=== PATIENT | female | born 1965 | race Caucasian/White ===

== ENCOUNTER → 2024-01-10 12:55 | Outpatient (REF) | payer OTHER, SELFPAY | LOC: HWRCS 12:55 | PROVIDERS: ATTENDING PHYSICIAN Internal Medicine Cardiovascular Disease; FAMILY PHYSICIAN Family Medicine | DX: R00.2 Palpitations (principal) | CPT/HCPCS: 93306 ==

== ENCOUNTER 2025-05-29 07:48 | Emergency (ER) | payer OTHER, SELFPAY ==
[2025-05-29] VITALS (8 sets, daily range): BP systolic 89–118; BP diastolic 51–80
[2025-05-29] MEDS: NSS 1000 IV (08:00)
--- NOTE | 2025-05-29 08:11 | ED.GENMED ---
History of Present Illness
General
Chief Complaint: Abdominal Symptoms
Time Seen by Provider: 05/29/25 07:54
History of Present Illness
History of Present Illness:
58 female with history of stage IV CKD, DVT currently on Coumadin, anxiety, bipolar disorder, hypertension, hyperlipidemia, presents to the emergency department for evaluation of diarrhea/weakness and blood tinged stool since this AM. Has a
reported history of C. difficile in October of this year. Primarily receives her medical care through [facility] as well as [facility]. She reports generalized abdominal bloating but denies any other abdominal pain. No
fevers or chills. No recent antibiotics in the past 3 months
Past History
Past History
ED Past Medical History: Other (Bipolar, hypertension, previous PE, hypothyroidism, sleep apnea, chronic kidney disease, sciatica, herniated lumbar disc, gastric bypass, hysterectomy, incisional hernia repair)
Social History
Tobacco: Former smoker
Alcohol: Occasional
Family History
Family History: Diabetes and CAD
Review of Systems
Review of Systems
Allergies reviewed?: Yes
All Other Systems: ROS reviewed and negative except as documented in HPI and ROS
Phy Exam
Physical Exam
Physical Exam:
GEN: Well appearing, NAD, WDWN
HEENT: Oral mucosa moist, no scleral icterus
Cardiac: Regular rate
Lung: No respiratory distress, no tachypnea
Abdomen: Morbid obesity limits exam, generally soft and nontender to all 4 quadrants
MSK: No gross deformity or injuries
Skin: Good color, no pallor or jaundice, no rashes
Neuro: AO x3, moves all extremities freely
Psych: Calm, cooperative
Course
Orders/Labs/Results
Orders:
Orders
05/29/25 07:55
0.9% Sodium Chloride 1000 ml [Nss] 1,000 ml IV BOLUS
05/29/25 08:02
Basic Metabolic Panel Urgent
Complete Blood Count/With Diff Urgent
05/29/25 08:13
PT/INR [Prothrombin Time] Urgent
05/29/25 09:44
Potassium Urgent
Abnormal Lab Results
05/29/25 05/29/25
08:02 08:13
RBC 3.88 L 10^6/uL
(4.20-5.40)
Hgb 11.0 L g/dL
(12.0-16.0)
Hct 34.4 L %
(37.0-47.0)
MCHC 32.0 L g/dL
(33.0-37.0)
RDW 15.6 H %
(11.5-14.5)
Abs Immat Gran (auto) 0.1 H 10^3/uL
(0-0.05)
Absolute Lymphs (auto) 1.1 L 10^3/uL
(1.2-3.4)
Immature Gran % 1.2 H %
(0-0.5)
Lymphocytes % 16.5 L %
(20.5-51.1)
PT 22.9 H Sec
(11.4-14.6)
BUN 35 H mg/dl
(7-17)
Creatinine 2.2 H mg/dL
(0.6-1.0)
Glucose 227 H mg/dl
(70-99)
05/29/25 08:02
05/29/25 09:44
Vital Signs
Initial and Last Documented VS:
Initial Vital Signs
Temp Pulse Resp BP Pulse Ox
98 F 65 16 93/51 98
05/29/25 07:51 05/29/25 07:51 05/29/25 07:51 05/29/25 07:51 05/29/25 07:51
Last Documented Vital Signs
Temp Pulse Resp BP Pulse Ox
98 F 65 16 113/55 99
05/29/25 07:51 05/29/25 07:51 05/29/25 07:51 05/29/25 10:00 05/29/25 09:03
MDM/Problems Addressed
MDM/Problems Addressed:
59-year-old female presents with 5 diarrhea and weakness. She was given IV fluids and her creatinine is at her reported baseline of 2.0. She had no further diarrhea. She notes that she is a [employer] wrapped yesterday and this is likely the source
of her symptoms. Will send for outpatient stool culture and C. difficile testing
*Pulse Oximetry
SaO2: 98
Oxygen Mode of Delivery: Room air
Patient hypoxic: no
*Critical Care Note
Total Time (30-74mins, 75-104mins- exclusive of procedures): Not Applicable
ED Attending Note
-
Portions of this chart may have been created with voice recognition software.� Occasional wrong word or��sound alike� substitutions may have occurred due to the inherent limitations of voice recognition software.
Discharge Plan
Departure
Patient Disposition: Home (Routine Discharge)
Date of Disposition: 05/29/25
Time of Disposition: 10:10
Patient with high blood pressure during this ER visit?: No
Discharge Problem:
Diarrhea
Instructions: Diarrhea in teens and adults
Prescriptions:
No Action
furosemide 40 MG tablet
40 mg PO DAILY
bupropion HCl 150 MG tablet sustained-release 12 hr
150 mg PO BID
lamotrigine [Lamictal] 200 MG tablet
200 mg PO BID
atorvastatin 10 MG tablet
20 mg PO DAILY
omeprazole [Prilosec] 40 MG capsule,delayed release(DR/EC)
40 mg PO DAILY
ziprasidone HCl 20 MG capsule
160 mg PO HS
levothyroxine 50 MCG tablet
50 mcg PO DAILY
docosahexaenoic acid-epa 1 CAP capsule
1 cap PO BID
metoprolol tartrate 25 MG tablet
25 mg PO BID
Referrals:
Dana Chase MD [Family Provider, Family Practice]
Activity Restrictions/Additional Instructions:
Collect stool specimens at your earliest convenience and return to the outpatient lab
Interventions
Interventions:
*Risk Screen - Suicide Last Done: 05/29/25 07:51
*General Assessment Last Done: 05/29/25 07:51
*Neglect/Abuse Screening Last Done: 05/29/25 07:51
*ED- Fall Risk Assessment Last Done: 05/29/25 08:00
*ED COVID-19 Vaccine History Last Done: 05/29/25 08:00
*ED Influenza Vaccine History Last Done: 05/29/25 08:00
*Nursing Disposition Last Done: 05/29/25 10:49
NN-Xqotry-Opqnggaudk Assessment Last Done: 05/29/25 07:59
Discharge Date and Time
Discharge Date/Time: 05/29/25 10:49
Print Language: ICELANDIC
[2025-05-29 08:15] LABS: Hematocrit 34.4 % (37.0-47.0); Hemoglobin 11.0 g/dL (12.0-16.0); Mean Corp Hgb Conc. 32.0 g/dL (33.0-37.0); Mean Corpuscular Volume 88.7 fL (81.0-99.0); Nucleated Red Blood Cells % 0 %; Platelet Count 223 10^3/uL (130-400); Red Cell Dist. Width 15.6 % (11.5-14.5)
[2025-05-29 08:33] LABS: INR 2.00; PT 22.9 Sec (11.4-14.6)
[2025-05-29 08:45] LABS: Blood Urea Nitrogen 35 mg/dl (7-17); Calcium 8.9 mg/dl (8.4-10.2); Carbon Dioxide 23 mmol/L (22-30); Chloride 106 mmol/L (98-107); Glucose 227 mg/dl (70-99); Sodium 136 mmol/L (135-145); eGFR 24.88
[2025-05-29 10:08] LABS: Potassium 5.1 mmol/L (3.5-5.1)
== END 2025-05-29 10:49 | disposition home or self-care (01) ==
LOC: EMR 07:48
PROVIDERS: Physician Assistant; EMERGENCY PHYSICIAN Emergency Medicine; FAMILY PHYSICIAN Family Medicine
DX: R19.7 Diarrhea, unspecified (principal); I12.9 Hypertensive chronic kidney disease with stage 1 through stage 4 chronic kidney disease, or unspecified chronic kidney disease; N18.4 Chronic kidney disease, stage 4 (severe); E78.5 Hyperlipidemia, unspecified; G47.30 Sleep apnea, unspecified; E03.9 Hypothyroidism, unspecified; F31.9 Bipolar disorder, unspecified; F41.9 Anxiety disorder, unspecified; M51.26 Other intervertebral disc displacement, lumbar region; Z79.01 Long term (current) use of anticoagulants; Z86.711 Personal history of pulmonary embolism; Z86.718 Personal history of other venous thrombosis and embolism; Z86.19 Personal history of other infectious and parasitic diseases; Z87.891 Personal history of nicotine dependence; Z98.84 Bariatric surgery status; Z82.49 Family history of ischemic heart disease and other diseases of the circulatory system
CPT/HCPCS: 99284; 96360; 80048; 84132; 85025; 85610

== ENCOUNTER → 2025-08-20 11:27 | Outpatient (REF) | payer OTHER, SELFPAY | LOC: HWRCS 11:27 | PROVIDERS: ATTENDING PHYSICIAN Internal Medicine Cardiovascular Disease; FAMILY PHYSICIAN Family Medicine | DX: R07.2 Precordial pain (principal); R06.09 Other forms of dyspnea | CPT/HCPCS: 93306 ==